=== PATIENT | female | born 1950 | race Hispanic/Latino ===

== ENCOUNTER → 2020-02-01 | Outpatient (CLI) | payer OTHER ==
[~2020-02-01] MED LIST: EPHEDRINE SULFATE 50 MG/ML AMPULE ONE
== END | disposition home or self-care (01) ==
LOC: RAH 15:32
PROVIDERS: ATTEND Internal Medicine Critical Care Medicine
DX: S72.001A Fracture of unspecified part of neck of right femur, initial encounter for closed fracture (principal); X58.XXXA Exposure to other specified factors, initial encounter; M79.651 Pain in right thigh; Y93.89 Activity, other specified; Y92.89 Other specified places as the place of occurrence of the external cause; Y99.8 Other external cause status
CPT/HCPCS: 73502; 73552